=== PATIENT | male | born 1955 | race Caucasian/White ===

== ENCOUNTER 2017-02-20 09:49 | Emergency (ER) | payer MEDICARE, OTHER ==
[~2017-02-20] VITALS: Ht 182.9 cm; Wt 87.0 kg
[~2017-02-20 09:49] MED LIST: SULF-154 PO
[2017-02-20 09:51] VITALS: BP 114/74; PULSE 89; RESP 18; TEMP 98.1; O2SAT 99
[2017-02-20] MEDS ORDERED: LUMI0.01 EACH EYE (10:07)
[2017-02-20] MEDS ORDERED: CEPH-460 PO (10:11)
[2017-02-20] MEDS ORDERED: BACT800T5 PO (10:11)
--- NOTE | 2017-02-20 10:11 | PD ---
HPI Chief Complaint: Skin Problem Time Seen by Provider: 10:01 Travel History International Travel<30 days: No Contact w/Intl Traveler<30days: No Traveled to known affect area: No History of Present Illness HPI This is a 61-year-old male who presents to the emergency department with a involving his left heel for 1 week, constant, moderate severity associated with 2 wounds on the base of his heel. Yesterday he drained the wounds and had a fair amount of pus come out of it. He denies any fevers or chills. He does have pain when he walks. He does not have a history of diabetes. He does drink alcohol but has had 2 weeks of sobriety. He does have a primary care physician who he follows with. [facility] Past Medical History Medical History: Denies Significant Hx Autoimmune Disease: No Cancer: No Cardiovascular Problems: No Diminished Hearing: No Endocrine: No Genitourinary: No Immune Disorder: No Musculoskeletal: Yes (BROKEN RIBS, R SHOULDER SX, R KNEE SX, BROKEN TOES) Neurologic: No Psychiatric: No Reproductive: No Respiratory: No Tetanus Vaccination: < 5 Years Past Surgical History Surgical History: No Previous Surgery Social History Alcohol Use: No (quit 2 weeks) Tobacco Use: No Substance Use: No Allergies-Medications (Allergen,Severity, Reaction): Coded Allergies: *MDRO Multi-Drug Resistant Organism (Verified Adverse Reaction, Unknown, 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 HEAD: Atraumatic. Normocephalic. EYES: Pupils equal and round. No injection or drainage. ENT: Moist mucous membranes NECK: Trachea midline. CARDIOVASCULAR: Regular rate and rhythm. No murmur appreciated. 2+ DP pulse with normal capillary refill. RESPIRATORY: Clear to auscultation. Breath sounds equal bilaterally. GASTROINTESTINAL: Abdomen soft, non-tender, nondistended. MUSCULOSKELETAL: No obvious deformities. NEUROLOGICAL: Awake and alert. No obvious cranial nerve deficits. Moving all extremities. PSYCHIATRIC: Appropriate mood and affect; insight and judgment normal. Data Data Last Documented VS Vital Signs Date Time Temp Pulse Resp B/P (MAP) Pulse Ox O2 Delivery O2 Flow Rate FiO2 02/20/17 10:05 02/20/17 09:51 98.1 89 18 99 [facility] Medical Decision Making Medical Screen Exam Complete: Yes Emergency Medical Condition: Yes Differential Diagnosis Cellulitis, abscess, spider bite, necrotizing fasciitis, diabetic foot infection Narrative Course This is a 61-year-old male who presents to the emergency department with drainage and pain at the base of his left heel. He thinks he was bitten by a spider. On exam he has a draining abscess on the heel that appears very localized. He has no surrounding cellulitis of the foot. He has no fever. He is nontoxic appearing. I think is appropriate for outpatient conservative therapy. I asked him to continue to apply warm compresses on the foot 4 times a day and to complete Keflex and Bactrim. He will follow-up with his primary care doctor in 2 days for recheck. The area is also marked and I advised him to monitor the marked area and if it spreads outside of that he should return to the emergency room. Diagnosis Primary Impression: Abscess, heel Patient Instructions: General Instructions Additional Instructions: If you develop fever, increasing redness, warmth, or spreading of your infection , or severe pain return to the emergency department immediately as you may require antibiotics through your IV. Complete your course of antibiotics as prescribed. Apply a warm washcloth 4 times a day for 15 minutes. Have your wound rechecked in 2 days. Med/Other Pt SpecificInfo: Prescription(s) given Scripts Cephalexin (Keflex) 500 Mg Cap 500 MG PO Q12H for Infection for 10 Days, #20 CAP 0 Refills Prov: Sharon Mix MD 02/20/17 Sulfamethoxazole-Trimethoprim (Bactrim DS) 800-160 Mg Tab 1 TAB PO BID for Infection, #20 TAB 0 Refills Prov: Sharon Mix MD 02/20/17 Disposition: 01 DISCHARGE HOME Condition: Stable Sharon Mix MD Feb 20, 2017 10:11
== END 2017-02-20 10:29 | disposition home or self-care (01) ==
LOC: NEPK 09:49
DX: L02.612 Cutaneous abscess of left foot (principal)
CPT/HCPCS: 99284

== ENCOUNTER 2018-02-06 08:55 | Inpatient (IN) ==
--- NOTE | 2018-02-06 09:19 | ED ---
HPI General Chief complaint: Urogenital-Male Stated complaint: Urinary Complaint Time Seen by Provider: 02/06/18 09:03 History of Present Illness HPI narrative: 62-year-old male presents for evaluation of urinary retention. He reports that he has been unable to urinate at all in the past 3 days. He reports that initially he was having some urinary dribbling however that has since gone away. He endorses right flank pain as well, mild, aching, no obvious aggravating relieving factors. He spoke to a pharmacist who recommended that he take cranberry juice which she has been doing but he says that this has just caused him to have some diarrhea. He endorses some suprapubic pressure as well. Denies nausea, vomiting, fevers, chills. Denies any significant past medical history. Primary care clinic at [facility]. No other complaints. Related Data Home Medications Medication Instructions Recorded Confirmed No Known Home Medications 02/06/18 02/06/18 Allergies Allergy/AdvReac Type Severity Reaction Status Date / Time No Known Allergies Allergy Verified 02/06/18 09:01 Review of Systems ROS: all other systems reviewed are negative PMFSH Social History Social History Substance History: No History of Abuse Second Hand Smoke Exposure: No Smoking Status: Never smoker Tobacco Type: Cigarettes How Often Do You Have a Drink Containing Alcohol: 2 to 3 times a week Recent Travel in [facility] within the Last 8 Weeks: No Recent Out of Country Travel within the Last 8 Weeks: No Exam Narrative Exam Narrative: GENERAL: Well-developed well-nourished male no acute distress SKIN: Warm and dry. HEAD: Atraumatic. Normocephalic. EYES: Pupils equal and round. No scleral icterus. No injection or drainage. ENT: No nasal bleeding or discharge. Mucous membranes pink and moist. NECK: Trachea midline. No JVD. CARDIOVASCULAR: Regular rate and rhythm. No murmur appreciated. RESPIRATORY: No accessory muscle use. Clear to auscultation. Breath sounds equal bilaterally. GASTROINTESTINAL: Abdomen soft, tender to palpation in the suprapubic region which feels somewhat distended. Rectal examination reveals an enlarged prostate which is nontender. MUSCULOSKELETAL: No obvious deformities. No clubbing. No cyanosis. No edema. NEUROLOGICAL: Awake and alert. No obvious cranial nerve deficits. Motor grossly within normal limits. Normal speech. Course Initial Documented Vital Signs Temperature 97.7 F 02/06/18 09:14 Pulse Rate 108 H 02/06/18 09:14 Respiratory Rate 18 02/06/18 09:14 Blood Pressure 124/69 02/06/18 09:14 Pulse Oximetry 95 02/06/18 09:14 Last Documented Vital Signs Temperature 97.7 F 02/06/18 09:14 Pulse Rate 108 H 02/06/18 09:14 Respiratory Rate 18 02/06/18 09:14 Blood Pressure 124/69 02/06/18 09:14 Pulse Oximetry 95 02/06/18 09:14 Medical Decision Making KELECHI Attestation KELECHI supervised visit: Yes Attestation: I was present with the advanced practitioner during the management of this patient. I discussed the case with the advanced practitioner and agree with the findings and plan as documented in their note except as noted below. 62yM presenting with acute urinary retention x 3 days. No known history of prostate enlargement or disease, no family history of prostate cancer. Patient had >1500 cc urine output with Dow catheter placement and reports significant improvement in suprapubic abdominal pain/ distension. Given onset of symptoms > 12 hours ago, we ordered labs and CT scan to rule out prostate or bladder mass; he was found to have acute kidney injury with creatinine of 9.3 (no previous labs available, likely post-obstructive). Will d/w nephrology and [facility] Narrative Medical decision making narrative: A Dow catheter was placed in nearly 2 L of urine was expressed. Lab work was obtained revealing a GFR of 6, likely secondary to postobstructive uropathy, no baseline renal function is on file. Patient will be admitted for further treatment. Medical Screen Exam Complete: Yes Emergency Medical Condition: Yes Differential Diagnosis Differential Diagnosis: Urinary retention, obstructive uropathy, acute kidney injury, prostatitis, BPH Lab Data Result diagrams: 02/06/18 09:30 02/06/18 09:30 Lab Results 02/06/18 02/06/18 02/06/18 Range/Units 09:30 09:30 09:30 WBC 12.4 H (4.0-11.0) th/mm3 RBC 4.23 L (4.50-5.90) mil/mm3 Hgb 13.2 (13.0-17.0) gm/dL Hct 38.8 L (39.0-51.0) % MCV 91.5 (80.0-100.0) fL MCH 31.1 (27.0-34.0) pg MCHC 33.9 (32.0-36.0) % RDW 17.0 (11.6-17.2) % Plt Count 284 (150-450) th/mm3 MPV 8.8 (7.0-11.0) fL Neut % (Auto) 77.5 H (16.0-70.0) % Lymph % (Auto) 10.0 (9.0-44.0) % [place] % (Auto) 8.4 H (0.0-8.0) % Eos % (Auto) 3.1 (0.0-4.0) % Baso % (Auto) 1.0 (0.0-2.0) % Neut # (Auto) 9.6 H (1.8-7.7) th/mm3 Lymph # (Auto) 1.2 (1.0-4.8) th/mm3 [place] # (Auto) 1.0 H (0.0-0.9) th/mm3 Eos # (Auto) 0.4 (0.0-0.4) th/mm3 Baso # (Auto) 0.1 (0.0-0.2) th/mm3 WBC Differential . Differential Comment Auto diff final Sodium 134 L (136-145) meq/L Potassium 4.1 (3.5-5.1) meq/L Chloride 99 (98-107) meq/L Carbon Dioxide 20.6 L (21.0-32.0) meq/L Anion Gap 14 (5-15) meq/L BUN 54 H (7-18) mg/dL Creatinine 9.32 H (0.60-1.30) mg/dL Estimated GFR 6 L (>89) mL/min Random Glucose 100 (74-106) mg/dL Calcium 8.9 (8.5-10.1) mg/dL Magnesium 2.4 (1.5-2.5) mg/dL Total Bilirubin 0.8 (0.2-1.0) mg/dL AST 27 (15-37) U/L ALT 30 (12-78) U/L Alkaline Phosphatase 208 H (45-117) U/L Total Protein 7.4 (6.4-8.2) g/dL Albumin 3.2 L (3.4-5.0) g/dL Urine Color Yellow (Yellw/Straw) Urine Clarity Clear (Clear) Urine pH 5.0 (5.0-8.5) Ur Specific [place] 1.006 (1.002-1.035) Urine Protein Negative (Neg-Trace) mg/dL Urine Glucose (UA) Negative (Negative) mg/dL Urine Ketones Negative (Negative) mg/dL Urine Occult Blood Small H (Negative) Urine Nitrate Negative (Negative) Urine Bilirubin Negative (Negative) Urine Urobilinogen Less than 2 (Less than 2) mg/dL Ur Leukocyte Esterase Negative (Negative) Urine RBC 2 (0-3) /hpf Urine WBC 1 (0-5) /hpf Ur Squamous Epith Cells <1 (0-5) /hpf Hyaline Casts 1 (0-3) /lpf Micro UA Comment Culture not ind Ur Microscopic Review Not Reportable Urine Culture Comments Culture not ind Imaging Data Radiologist's impression: Abdomen/Pelvis CT 02/06/18 09:15 CONCLUSION: 1. No renal calculi or obstruction. 2. Mild inflammatory change along the inferior right kidney and adjacent mesentery as well as the proximal right ureter. The finding is nonspecific but could be infectious or inflammatory. No ureteral calculi is identified. 3. Dow catheter in bladder which is decompressed with small air-fluid levels. Discharge Plan Discharge Disposition Patient Disposition: 30 Still Patient Discharge Condition Condition: Stable Discharge Details Diagnosis: Acute retention of urine, Obstructed, uropathy, Acute renal failure Physicians Team ED Provider: Nkechi Abraham ED Midlevel Provider: Fernando Knowles Primary Care Provider: UNKNOWN, Rxs /Orders / Referrals /Forms Prescriptions: No Action No Known Home Medications RF: 0 Status ED Status: With Doctor
[2018-02-06 09:56] LABS: Baso # (Auto) 0.1 th/mm3 (0.0-0.2); Eos # (Auto) 0.4 th/mm3 (0.0-0.4); Eos % (Auto) 3.1 % (0.0-4.0); Hematocrit 38.8 % (39.0-51.0); Hemoglobin 13.2 gm/dL (13.0-17.0); Lymph # (Auto) 1.2 th/mm3 (1.0-4.8); Mean Corpuscular HGB Conc 33.9 % (32.0-36.0); Mean Corpuscular Hemoglobin 31.1 pg (27.0-34.0); Mean Corpuscular Volume 91.5 fL (80.0-100.0); Mean Platelet Volume 8.8 fL (7.0-11.0); Mono % (Auto) 8.4 % (0.0-8.0); Neut # (Auto) 9.6 th/mm3 (1.8-7.7); Neut % (Auto) 77.5 % (16.0-70.0); Platelet Count 284 th/mm3 (150-450); Red Blood Count 4.23 mil/mm3 (4.50-5.90); White Blood Count 12.4 th/mm3 (4.0-11.0)
[2018-02-06 10:11] LABS: Bilirubin,Urine Negative (Negative); Clarity,Urine Clear (Clear); Color,Urine Yellow (Yellw/Straw); Glucose,Urine (UA) Negative (Negative); Hyaline Casts,Urine 1 /lpf (0-3); Leukocyte Esterase,Urine Negative (Negative); Nitrite,Urine Negative (Negative); Specific Gravity,Urine 1.006 (1.002-1.035); Squamous Epithelial Cell,Urine <1 /hpf (0-5)
[2018-02-06 10:14] LABS: Albumin 3.2 g/dL (3.4-5.0); Anion Gap 14 meq/L (5-15); Aspartate Aminotransferase 27 U/L (15-37); Blood Urea Nitrogen 54 mg/dL (7-18); Calcium 8.9 mg/dL (8.5-10.1); Carbon Dioxide 20.6 meq/L (21.0-32.0); Chloride 99 meq/L (98-107); Glomerular Filtration Rate 6 mL/min (>89); Glucose,Random 100 mg/dL (74-106); Magnesium 2.4 mg/dL (1.5-2.5); Potassium 4.1 meq/L (3.5-5.1); Sodium 134 meq/L (136-145)
[2018-02-06 10:15] LABS: Alanine Aminotransferase 30 U/L (12-78)
[2018-02-06 10:17] LABS: Alkaline Phosphatase 208 U/L (45-117); Total Protein 7.4 g/dL (6.4-8.2)
--- NOTE | 2018-02-06 10:28 | CT ---
EXAM DATE: 02/06/2018 10:07 AM EST AGE/SEX: 62 years / Male INDICATIONS: Abdominal pain, unable to urinate three days. CLINICAL DATA: This is the patient's initial encounter. Patient reports that signs and symptoms have been present for 3 days and indicates a pain score of 5/10. MEDICAL/SURGICAL HISTORY: None. None. RADIATION DOSE: 8.13 CTDI (mGy) COMPARISON: [facility] [place], CT ABDOMEN & PELVIS W/O CONTRAST, 03/03/2015. . TECHNIQUE: Multiple contiguous axial images were obtained through the abdomen. Images were obtained using multiple row detector helical technique. Using automated exposure control and adjustment of the mA and/or kV according to patient size, radiation dose was kept as low as reasonably achievable to o btain optimal diagnostic quality images. DICOM format image data is available electronically for rev iew and comparison. FINDINGS: Lower Lungs: The visualized lower lungs are clear. There is a minimal amount of pericardial fluid pre sent. Liver: The liver has a homogeneous density without space-occupying lesion. There is no dilation of th e biliary tree. The gallbladder is unremarkable in appearance. Spleen: Homogeneous density without enlargement. Pancreas: Unremarkable without mass or calcification. Kidneys: Normal in size and shape. No evidence of mass or hydronephrosis. There are no renal calculi . Is mild inflammatory change along the inferior aspect of the right kidney and in the adjacent mesen kellie. This is new from the prior study. There are no ureteral calculi. Is apparent mild inflammatory change surrounding portions of the right ureter. There is no abnormal dilatation. Adrenal Glands: Unremarkable. Aorta: The aorta and proximal iliac vessels are grossly unremarkable without aneurysmal dilation. Bowel/Mesentery: The bowel loops are grossly unremarkable. The cecum and sigmoid colon have a normal configuration. Abdominal Wall: Intact. Retroperitoneum: No evidence of adenopathy in the retrocrural, para-aortic, or deep pelvic regions. Bladder: A Dow catheter is present in the bladder with small air fluid level. There are no bladder calculi. Reproductive Organs: No abnormal masses or calcifications seen. Inguinal: The inguinal region is unremarkable without evidence of adenopathy. Bony Structures: Unremarkable. CONCLUSION: 1. No renal calculi or obstruction. 2. Mild inflammatory change along the inferior right kidney and adjacent mesentery as well as the pr oximal right ureter. The finding is nonspecific but could be infectious or inflammatory. No ureteral calculi is identified. 3. Dow catheter in bladder which is decompressed with small air-fluid levels. Electronically signed by: Darian Jose MD 02/06/2018 10:27 AM EST
[2018-02-06] MEDS: Sod Chloride 0.9% Inj 1,000 ML IV.CONT SCH ×2 (11:14→21:46)
[2018-02-06] MEDS ORDERED: Acetaminophen 325 MG Tablet PO PRN (11:49)
--- NOTE | 2018-02-06 11:49 | P.HPIM ---
History of Present Illness Primary Care Physician: UNKNOWN Chief Complaint: urinary retention History of Present Illness: patient is a 62 y/o male with questionable history of prostate cancer presented to ER with urinary retention. he says that he hasn't been able to void for the past three days. he denies any abdominal pain, nausea, vomiting or fever. he says that he talked to a pharmacist and was advised to drink cranberry juice which he did with no improvement. he says that he was told a few months ago that he had prostate cancer and ' they gave me a medication for it'. Inpatient Certification: I certify that the inpatient services were ordered in accordance with Medicare regulations governing the order. This includes certification that hospital inpatient services are reasonable and necessary and in the case of services not specified as inpatient-only under 42 CFR 419.22(n), that they are appropriately provided as inpatient services in accordance to with the 2-midnight benchmark under 43 CFR 412.3(e) Estimated Total Length of Stay (Days): 2 Plans for Post Hospital Care: Home Review of Systems All other systems reviewed negative except as stated in HPI PMFSH - History History Provided By: Patient - Medical History Medical History: Medical History (Last Reviewed 02/06/18 @ 11:45 by John Tang MD) Patient denies medical problems - Surgical History Surgical History: Surgical History (Last Reviewed 02/06/18 @ 11:45 by John Tang MD) No history of previous surgery - Family History Family History: Family History (Last Updated 02/06/18 @ 11:45 by John Tang MD) Other No pertinent family history - Tobacco History Second Hand Smoke Exposure: No Tobacco Use In Past 30 Days: No Smoking Status: Never smoker Tobacco Type: Cigarettes - Alcohol History How Often Do You Have a Drink Containing Alcohol: 2 to 3 times a week - Substance Use History Substance History: No History of Abuse - Travel History Recent Travel in the [place] Within the Last 8 Weeks: No Recent Travel Out of the Country Within the Last 8 Weeks: No - Immunization History Tetanus Immunization: <5 Years Medications and Allergies Active Medications: Active Medications Sodium Chloride (Ns Inj) 1,000 mls @ 100 mls/hr IV.CONT .Q10H KATY Last Admin: 02/06/18 11:14 Dose: 100 mls/hr Allergies Allergy/AdvReac Type Severity Reaction Status Date / Time No Known Allergies Allergy Verified 02/06/18 09:01 Home Medications Medication Instructions Recorded Confirmed Type No Known Home Medications 02/06/18 02/06/18 History Exam Vital signs: Vital Signs 02/06/18 09:14 Temperature 97.7 F Pulse Rate 108 H Respiratory Rate 18 Blood Pressure 124/69 Pulse Oximetry 95 Intake & Output 02/05/18 02/06/18 02/06/18 18:59 06:59 18:59 Weight 74.843 kg - Constitutional no acute distress - Routine HEENT Exam Eye: Present: PERRL - Routine Neck Exam Present: supple - Routine Respiratory Exam Present: CTA bilaterally - Routine Cardiovascular Exam Present: RRR - Routine Abdominal Exam Present: soft - Routine Extremities Exam Comments: no pedal edema. - Routine Neurological Exam Present: alert, oriented X3 Results - Labs CBC & Chem 7: 02/06/18 09:30 02/06/18 09:30 Labs: Short CBC 02/06/18 Range/Units 09:30 WBC 12.4 H (4.0-11.0) th/mm3 Hgb 13.2 (13.0-17.0) gm/dL Hct 38.8 L (39.0-51.0) % Plt Count 284 (150-450) th/mm3 BMP 02/06/18 09:30 Sodium 134 L Potassium 4.1 Chloride 99 Carbon Dioxide 20.6 L BUN 54 H Creatinine 9.32 H Calcium 8.9 Liver Function 02/06/18 Range/Units 09:30 Total Bilirubin 0.8 (0.2-1.0) mg/dL AST 27 (15-37) U/L ALT 30 (12-78) U/L Alkaline Phosphatase 208 H (45-117) U/L Albumin 3.2 L (3.4-5.0) g/dL Urine 02/06/18 Range/Units 09:30 Urine Color Yellow (Yellw/Straw) Urine Clarity Clear (Clear) Urine pH 5.0 (5.0-8.5) Ur Specific [place] 1.006 (1.002-1.035) Urine Protein Negative (Neg-Trace) mg/dL Urine Glucose (UA) Negative (Negative) mg/dL - Imaging Impressions Abdomen/Pelvis CT 02/06/18 09:15 CONCLUSION: 1. No renal calculi or obstruction. 2. Mild inflammatory change along the inferior right kidney and adjacent mesentery as well as the proximal right ureter. The finding is nonspecific but could be infectious or inflammatory. No ureteral calculi is identified. 3. Nettles catheter in bladder which is decompressed with small air-fluid levels. Caprini VTE Risk Assessment Caprini VTE Risk Assessment: Moderate/High Risk (score >= 2) Caprini Risk Assessment Model: Point Value = 1 Point Value = 2 Point Value = 3 Point Value = 5 Age 41-60 Minor surgery BMI > 25 kg/m2 Swollen legs Varicose veins or History of unexplained or recurrent spontaneous Oral contraceptives or hormone replacement Sepsis (< 1 month) Serious lung disease, including pneumonia (< 1 month) Abnormal pulmonary function Acute myocardial infarction Congestive heart failure (< 1 month) History of inflammatory bowel disease Medical patient at bed rest Age 61-74 Arthroscopic surgery Major open surgery (> 45 min) Laparoscopic surgery (> 45 min) Malignancy Confined to bed (> 72 hours) Immobilizing plaster cast Central venous access Age >= 75 History of VTE Family history of VTE Factor V Leiden Prothrombin [id number] Lupus anticoagulant Anticardiolipin antibodies Elevated serum homocysteine Heparin-induced thrombocytopenia Other congenital or acquired thrombophilia Stroke (< 1 month) Elective arthroplasty Hip, pelvis, or leg fracture Acute spinal cord injury (< 1 month) Prophylaxis Regimen: Total Risk Factor Score Risk Level Prophylaxis Regimen 0-1 Low Early ambulation 2 Moderate Order ONE of the following: *Sequential Compression Device (SCD) *Heparin 5000 units SQ BID 3-4 Higher Order ONE of the following medications: *Heparin 5000 units SQ TID *Enoxaparin/Lovenox 40 mg SQ daily (WT < 150 kg, CrCl > 30 mL/min) *Enoxaparin/Lovenox 30 mg SQ daily (WT < 150 kg, CrCl > 10-29 mL/min) *Enoxaparin/Lovenox 30 mg SQ BID (WT < 150 kg, CrCl > 30 mL/min) AND/OR *Sequential Compression Device (SCD) 5 or more Highest Order ONE of the following medications: *Heparin 5000 units SQ TID (Preferred with Epidurals) *Enoxaparin/Lovenox 40 mg SQ daily (WT < 150 kg, CrCl > 30 mL/min) *Enoxaparin/Lovenox 30 mg SQ daily (WT < 150 kg, CrCl > 10-29 mL/min) *Enoxaparin/Lovenox 30 mg SQ BID (WT < 150 kg, CrCl > 30 mL/min) AND *Sequential Compression Device (SCD) Assessment and Plan - Plan A/P - Acute kidney injury due to urinary retention with questionable history of prostate cancer nettles cath was inserted and two liters of urine was immediately removed. continue with IV fluid/ I/O monitoring. will consult nephrology and Urology. kidney US will be obtained. -DVT prophylaxis with SCD's Discussed Condition With: ER physician and the patient. Discharge Planning: home when clinically stable.
--- NOTE | 2018-02-06 12:45 | P.CONNP ---
History of Present Illness Service: Nephrology Consult date: 02/06/18 Requesting Physician: John Tang Reason for Consult: Acute renal failure Primary Care Provider: UNKNOWN Chief Complaint: urinary retention History of Present Illness: Patient is a 62-year-old white male with history of benign prostate enlargement , stated he was told that his prostate is enlarged he said he has difficulty in voiding and did not pass urine and came in with abdominal discomfort, a Dow catheter was inserted and he passed 2 L of urine and another 2 L has come out since Dow insertion his creatinine was above 9 he denied any history of kidney failure in the past for kidney stones, states his PSA was 6 and I declined to 4 with the help of medications. Review of Systems Constitutional: Reports lack of energy Eyes: Denies blind spots, Denies blurry vision, Denies bulging eyes, Denies change in vision, Denies double vision, Denies discharge, Denies dry eyes, Denies floaters, Denies irritation, Denies itchy eyes, Denies loss of vision, Denies pain, Denies requires corrective lenses, Denies sensitivity to light, Denies other Ears, Nose, Mouth, and Throat: Denies abnormal hearing, Denies bleeding gums, Denies bad breath, Denies change in voice, Denies dental pain, Denies difficulty swallowing, Denies dizziness, Denies dry mouth, Denies ear discharge , Denies ear pain, Denies facial pain, Denies headache(s), Denies hearing loss, Denies hoarseness, Denies lip swelling, Denies nosebleed, Denies mouth lesions, Denies mouth pain, Denies nasal congestion, Denies nasal discharge, Denies nasal obstruction, Denies nasal trauma, Denies neck lump, Denies neck pain, Denies nose pain, Denies pain with swallowing, Denies poor balance, Denies post nasal drip, Denies ringing in the ears, Denies sinus pain, Denies sinus pressure , Denies sore throat, Denies throat swelling, Denies tongue swelling, Denies other Cardiovascular: Denies chest pain, Denies chest pain at rest, Denies chest pain with activity, Denies excessive sweating, Denies fainting, Denies fast heart rate, Denies foot swelling, Denies generalized swelling, Denies irregular heart rhythm, Denies leg pain with activity, Denies leg sores, Denies leg swelling, Denies lightheadedness, Denies radiating jaw, neck or arm pain, Denies rapid, pounding, or irregular heartbeat, Denies shortness of breath, Denies shortness of breath with activity, Denies shortness of breath when lying down, Denies shortness of breath causing sudden awakening, Denies slow heart rate, Denies other Respiratory: Denies change in phlegm color, Denies chest congestion, Denies cough, Denies coughing up blood, Denies excessive phlegm production, Denies pain on inspiration, Denies pain with cough, Denies shortness of breath, Denies shortness of breath with activity, Denies snoring, Denies stridor, Denies wheezing, Denies other Gastrointestinal: Reports abdominal pain Genitourinary: Reports decreased urination, Reports urinary hesitancy Musculoskeletal: Reports muscle weakness Neurologic: Reports weakness Endocrine: Denies cold intolerance, Denies excessive sweating, Denies flushing, Denies heat intolerance, Denies increased hunger, Denies increased thirst, Denies increased urination, Denies rapid, pounding, or irregular heartbeat, Denies other Hematologic/Lymphatic: Denies easy bleeding, Denies easy bruising, Denies enlarged lymph nodes, Denies other Allergic/Immunologic: Denies GI upset with certain foods, Denies hives, Denies itchy eyes, Denies lip swelling, Denies seasonal runny nose, Denies throat swelling, Denies tongue swelling, Denies wheezing, Denies other PMFSH - History History Provided By: Patient - Medical History Medical History: Medical History (Last Updated 02/06/18 @ 12:43 by Geo Adorno MD) BPH (benign prostatic hyperplasia) Patient denies medical problems - Surgical History Surgical History: Surgical History (Last Reviewed 02/06/18 @ 12:43 by Geo Adorno MD) No history of previous surgery - Family History Family History: Family History (Last Reviewed 02/06/18 @ 12:43 by Geo Adorno MD) Other No pertinent family history - Social History I have reviewed the patient's Social History: Yes - Tobacco History Second Hand Smoke Exposure: No Tobacco Use In Past 30 Days: No Smoking Status: Former smoker (Smoke more than 20 years ago less than a pack per day) Tobacco Type: Cigarettes - Alcohol History How Often Do You Have a Drink Containing Alcohol: 2 to 3 times a week - Substance Use History Substance History: No History of Abuse - Travel History Recent Travel in the [place] Within the Last 8 Weeks: No Recent Travel Out of the Country Within the Last 8 Weeks: No - Immunization History Tetanus Immunization: <5 Years Medications and Allergies Active Medications: Active Medications Acetaminophen (Tylenol) 650 mg PO Q4H PRN PRN Reason: fever/pain Sodium Chloride (Ns Inj) 1,000 mls @ 100 mls/hr IV.CONT .Q10H KATY Last Admin: 02/06/18 11:14 Dose: 100 mls/hr Ondansetron HCl (Zofran Inj) 4 mg IV.PUSH Q8H PRN PRN Reason: nausea Allergies Allergy/AdvReac Type Severity Reaction Status Date / Time No Known Allergies Allergy Verified 02/06/18 09:01 Home Medications Medication Instructions Recorded Confirmed Type No Known Home Medications 02/06/18 02/06/18 History Exam Vital signs: Vital Signs 02/06/18 09:14 Temperature 97.7 F Pulse Rate 108 H Respiratory Rate 18 Blood Pressure 124/69 Pulse Oximetry 95 Intake & Output 02/05/18 02/06/18 02/06/18 18:59 06:59 18:59 Weight 74.843 kg Narrative: GENERAL: Well-nourished, well-developed patient. SKIN: Warm and dry. HEAD: Normocephalic. EYES: No scleral icterus. No injection or drainage. NECK: Supple, trachea midline. No JVD or lymphadenopathy. CARDIOVASCULAR: Regular rate and rhythm without murmurs, gallops, or rubs. RESPIRATORY: Breath sounds equal bilaterally. No accessory muscle use. GASTROINTESTINAL: Abdomen soft, non-tender, nondistended. EXTREMITIES: No edema NEUROLOGICAL: Awake, alert, and oriented x 3. Non-focal. Results - Lab Results 02/06/18 09:30 02/06/18 09:30 Most recent lab results Calcium 8.9 mg/dL (8.5-10.1) 02/06/18 09:30 Magnesium 2.4 mg/dL (1.5-2.5) 02/06/18 09:30 Assessment and Plan - Assessment (1) Acute renal failure Code(s): N17.9 - Acute kidney failure, unspecified Status: Acute (2) Acute retention of urine Code(s): R33.8 - Other retention of urine Status: Acute (3) Obstructed, uropathy Code(s): N13.9 - Obstructive and reflux uropathy, unspecified Status: Acute - Plan Patient has postoperative diuresis, continue monitor BMP, electrolytes, give him well-hydrated At Flomax daily Keep Dow catheter in place He will need urological follow-up Acute renal failure is due to obstructive uropathy which is reversible
--- NOTE | 2018-02-06 12:57 | P.CONURO ---
History of Present Illness Service: Consult date: 02/06/18 Requesting Physician: John Tang Reason for Consult: Urinary retention Primary Care Provider: UNKNOWN Chief Complaint: urinary retention History of Present Illness: 62-year-old gentleman who was recently diagnosed with prostate cancer and being managed over the past several months at [facility] who presented to the emergency room with complaints of inability to urinate for the past several days. Patient had an indwelling Dow catheter placed with evacuation of almost 2 L of urine. Laboratory studies included market elevation of the serum creatinine greater than 9. A CT scan of the abdomen and pelvis was performed that failed to demonstrate any significant abnormalities other than some mild inflammatory changes to the inferior aspect of the right kidney. Patient has already been seen by nephrology and a urology consult placed for further recommendations regarding the urinary retention. At the time of consultation, the patient was resting comfortably in bed in no acute distress. He reported that the Dow had been draining well and he felt much better. Patient reports that he is being treated medically for his prostate cancer over at [facility] and thus far the physicians have been happy with his progress. Review of Systems All other systems reviewed negative except as stated in HPI PMFSH - History History Provided By: Patient - Medical History Medical History: Medical History (Last Updated 02/06/18 @ 12:43 by Geo Adorno MD) BPH (benign prostatic hyperplasia) Patient denies medical problems - Surgical History Surgical History: Surgical History (Last Reviewed 02/06/18 @ 12:43 by Geo Adorno MD) No history of previous surgery - Family History Family History: Family History (Last Reviewed 02/06/18 @ 12:43 by Geo Adorno MD) Other No pertinent family history - Tobacco History Second Hand Smoke Exposure: No Tobacco Use In Past 30 Days: No Smoking Status: Former smoker (Smoke more than 20 years ago less than a pack per day) Tobacco Type: Cigarettes - Alcohol History How Often Do You Have a Drink Containing Alcohol: 2 to 3 times a week - Substance Use History Substance History: No History of Abuse - Travel History Recent Travel in the [facility] Within the Last 8 Weeks: No Recent Travel Out of the Country Within the Last 8 Weeks: No - Immunization History Tetanus Immunization: <5 Years Medications and Allergies Active Medications: Active Medications Acetaminophen (Tylenol) 650 mg PO Q4H PRN PRN Reason: fever/pain Sodium Chloride (Ns Inj) 1,000 mls @ 100 mls/hr IV.CONT .Q10H KATY Last Admin: 02/06/18 11:14 Dose: 100 mls/hr Ondansetron HCl (Zofran Inj) 4 mg IV.PUSH Q8H PRN PRN Reason: nausea Tamsulosin HCl (Flomax) 0.4 mg PO DAILY KATY Allergies Allergy/AdvReac Type Severity Reaction Status Date / Time No Known Allergies Allergy Verified 02/06/18 09:01 Home Medications Medication Instructions Recorded Confirmed Type No Known Home Medications 02/06/18 02/06/18 History Physical Exam Vital Signs - 24 hr 02/06/18 09:14 Temperature 97.7 F Pulse Rate 108 H Respiratory Rate 18 Blood Pressure 124/69 Pulse Oximetry 95 Physical Exam: GENERAL: This is a well-nourished, well-developed patient, in no apparent distress. SKIN: No rashes, ecchymoses or lesions. Cool and dry. HEAD: Atraumatic. Normocephalic. No temporal or scalp tenderness. EYES: Pupils equal round and reactive. Extraocular motions intact. No scleral icterus. No injection or drainage. ENT: Nose without bleeding, purulent drainage or septal hematoma. Throat without erythema, tonsillar hypertrophy or exudate. Uvula midline. Airway patent. NECK: Trachea midline. No JVD or lymphadenopathy. Supple, nontender, no meningeal signs. CARDIOVASCULAR: Regular rate and rhythm without murmurs, gallops, or rubs. RESPIRATORY: Clear to auscultation. Breath sounds equal bilaterally. No wheezes , rales, or rhonchi. GASTROINTESTINAL: Abdomen soft, non-tender, nondistended. No hepato-splenomegaly , or palpable masses. No guarding. GENITOURINARY: No CVA tenderness, bladder not distended, Dow in place draining clear yellow urine. MUSCULOSKELETAL: Extremities without clubbing, cyanosis, or edema. No joint tenderness, effusion, or edema noted. No calf tenderness. Negative Homans sign bilaterally. NEUROLOGICAL: Awake and alert. Cranial nerves II through XII intact. Motor and sensory grossly within normal limits. Five out of 5 muscle strength in all muscle groups. Normal speech. Laboratory Results - last 24 hr 02/06/18 02/06/18 02/06/18 09:30 09:30 09:30 WBC 12.4 H RBC 4.23 L Hgb 13.2 Hct 38.8 L MCV 91.5 MCH 31.1 MCHC 33.9 RDW 17.0 Plt Count 284 MPV 8.8 Neut % (Auto) 77.5 H Lymph % (Auto) 10.0 [place] % (Auto) 8.4 H Eos % (Auto) 3.1 Baso % (Auto) 1.0 Neut # (Auto) 9.6 H Lymph # (Auto) 1.2 [place] # (Auto) 1.0 H Eos # (Auto) 0.4 Baso # (Auto) 0.1 WBC Differential . Differential Comment Auto diff final Sodium 134 L Potassium 4.1 Chloride 99 Carbon Dioxide 20.6 L Anion Gap 14 BUN 54 H Creatinine 9.32 H Estimated GFR 6 L Random Glucose 100 Calcium 8.9 Magnesium 2.4 Total Bilirubin 0.8 AST 27 ALT 30 Alkaline Phosphatase 208 H Total Protein 7.4 Albumin 3.2 L Urine Color Yellow Urine Clarity Clear Urine pH 5.0 Ur Specific [place] 1.006 Urine Protein Negative Urine Glucose (UA) Negative Urine Ketones Negative Urine Occult Blood Small H Urine Nitrate Negative Urine Bilirubin Negative Urine Urobilinogen Less than 2 Ur Leukocyte Esterase Negative Urine RBC 2 Urine WBC 1 Ur Squamous Epith Cells <1 Hyaline Casts 1 Micro UA Comment Culture not ind Ur Microscopic Review Not Reportable Urine Culture Comments Culture not ind Result Diagrams: 02/06/18 09:30 02/06/18 09:30 Imaging: ITS Impressions Abdomen/Pelvis CT 02/06/18 09:15 CONCLUSION: 1. No renal calculi or obstruction. 2. Mild inflammatory change along the inferior right kidney and adjacent mesentery as well as the proximal right ureter. The finding is nonspecific but could be infectious or inflammatory. No ureteral calculi is identified. 3. Dow catheter in bladder which is decompressed with small air-fluid levels. Assessment and Plan - Assessment (1) Acute retention of urine Code(s): R33.8 - Other retention of urine Status: Acute (2) Prostate CA Code(s): C61 - Malignant neoplasm of prostate Status: Acute - Plan Urologic impression: 1. Recent diagnosis of prostate cancer 2. Urinary retention likely related to bladder outlet obstruction from the prostate cancer Recommendations: 1. Maintain Dow catheter to gravity drainage 2. Patient may be discharged home with Dow once his renal parameters improve 3. Patient advised to follow-up with the physicians at [facility] for ongoing management of his prostate cancer 4. We will be available as needed during present hospitalization.
--- NOTE | 2018-02-06 14:34 | US ---
EXAM DATE: 02/06/2018 2:11 PM EST AGE/SEX: 62 years / Male INDICATIONS: Increased lab values. CLINICAL DATA: This is the patient's initial encounter. Patient reports that signs and symptoms have been present for 1 day and indicates a pain score of 0/10. MEDICAL/SURGICAL HISTORY: . Benign prostatic hyperplasia. None. COMPARISON: . MEASUREMENTS: Right Kidney:__10.6 x 4.3 x 4.7 cm Left Kidney:__10.3 x 5.4 x 4.9 cm FINDINGS: Right Kidney: No solid mass or hydronephrosis. Simple cyst is present in midpole measures 1.1 cm in s ize. Left Kidney: No mass or hydronephrosis. Bladder: Dow catheter is present. Bladder decompressed. Other: The prostate gland is enlarged measures 4.4 cm in size. CONCLUSION: 1. Prominent prostate as simple cyst in the right kidney. Electronically signed by: Naomi Kemp MD 02/06/2018 2:33 PM EST
[2018-02-07] MEDS: Sod Chloride 0.9% Inj 1,000 ML IV.CONT SCH ×2 (06:28→16:14)
[2018-02-07 10:09] LABS: Baso # (Auto) 0.1 th/mm3 (0.0-0.2); Baso % (Auto) 1.1 % (0.0-2.0); Eos # (Auto) 0.3 th/mm3 (0.0-0.4); Eos % (Auto) 3.8 % (0.0-4.0); Hematocrit 32.5 % (39.0-51.0); Lymph # (Auto) 1.1 th/mm3 (1.0-4.8); Lymph % (Auto) 14.9 % (9.0-44.0); Mean Corpuscular HGB Conc 33.8 % (32.0-36.0); Mean Corpuscular Hemoglobin 31.4 pg (27.0-34.0); Mean Corpuscular Volume 92.9 fL (80.0-100.0); Mean Platelet Volume 8.5 fL (7.0-11.0); Mono # (Auto) 0.7 th/mm3 (0.0-0.9); Mono % (Auto) 8.6 % (0.0-8.0); Neut # (Auto) 5.4 th/mm3 (1.8-7.7); Neut % (Auto) 71.6 % (16.0-70.0); Platelet Count 248 th/mm3 (150-450); White Blood Count 7.6 th/mm3 (4.0-11.0)
[2018-02-07 10:17] LABS: Carbon Dioxide 27.3 meq/L (21.0-32.0); Potassium 4.3 meq/L (3.5-5.1)
--- NOTE | 2018-02-07 12:21 | P.PNIM ---
Subjective Interval history: Patient is feeling much relief after placement of urinary catheter overnight in the ER. He presented for urinary obstruction secondary to prostate cancer. Physical Exam Vital signs: Vital Signs 02/06/18 16:00 02/06/18 20:00 02/07/18 00:00 Temperature 98.2 F 98.3 F 97.9 F Pulse Rate 105 H 112 H 97 H Respiratory Rate 18 18 20 Blood Pressure 146/77 H 128/76 121/67 Pulse Oximetry 97 95 94 L 02/07/18 04:00 02/07/18 08:00 Temperature 98.3 F 98.2 F Pulse Rate 95 H 76 Respiratory Rate 20 18 Blood Pressure 128/72 126/62 Pulse Oximetry 94 L 95 Intake & Output 02/06/18 02/07/18 02/07/18 18:59 06:59 18:59 Intake Total 140 / 140 2006 1000 / 1000 Output Total 1000 / 1000 1000 / 1000 Balance -860 / -860 1007 / 1007 1000 / 1000 Weight 76.2 kg 76.2 kg Intake: IV 1867 / 1867 1000 / 1000 NS Inj 1,000 ML @ 100 mls/hr IV 1867 / 1867 1000 / 1000 .CONT .Q10H KATY Rx#:[id number] Oral 140 / 140 140 / 140 Output: Urine 1000 / 1000 1000 / 1000 Other: Date of Last Bowel Movement 02/06/18 02/06/18 # Bowel Movements 0 0 Narrative: GENERAL: Well-nourished, well-developed patient. SKIN: Warm and dry. No obvious rashes HEAD: Normocephalic. EYES: No scleral icterus. No injection or drainage. NECK: Supple, trachea midline. No JVD or lymphadenopathy. CARDIOVASCULAR: Regular rate and rhythm without murmurs, gallops, or rubs. RESPIRATORY: Breath sounds equal bilaterally. No accessory muscle use. GASTROINTESTINAL: Abdomen soft, non-tender, nondistended. EXTREMITIES: No edema NEUROLOGICAL: Awake, alert, and oriented x 3. Non-focal. - Urinary Catheter Management Indwelling Urethral Catheter Cath placed during this visit: yes Reason for continuing: Acute urinary retention Insertion date: 02/06/18 Insertion time: 09:30 Results - Labs CBC & Chem 7: 02/07/18 08:34 02/07/18 08:34 Laboratory Results - last 24 hr 02/07/18 02/07/18 08:34 08:34 WBC 7.6 RBC 3.50 L Hgb 11.0 L D Hct 32.5 L MCV 92.9 MCH 31.4 MCHC 33.8 RDW 17.0 Plt Count 248 MPV 8.5 Neut % (Auto) 71.6 H Lymph % (Auto) 14.9 [place] % (Auto) 8.6 H Eos % (Auto) 3.8 Baso % (Auto) 1.1 Neut # (Auto) 5.4 Lymph # (Auto) 1.1 [place] # (Auto) 0.7 Eos # (Auto) 0.3 Baso # (Auto) 0.1 WBC Differential . Differential Comment Auto diff final Sodium 142 Potassium 4.3 Chloride 108 H D Carbon Dioxide 27.3 Anion Gap 7 BUN 21 H Creatinine 1.40 H Estimated GFR 51 L Random Glucose 83 Calcium 8.0 L D - Imaging Impressions Abdomen/Bladder Ultrasound 02/06/18 00:00 CONCLUSION: 1. Prominent prostate as simple cyst in the right kidney. Assessment and Plan - Plan Urinary outflow obstruction Prostatic enlargement, prostate cancer versus benign Patient reports this is not happened before, he says his PSA was going down from 6.4 to 4.2 on recent lab work Dow catheter relieved his obstruction No evidence of urinary tract infection on ER urine sample Urology consult pending Acute renal failure Secondary to outflow obstruction Creatinine was 9.3 on admission now down to 1.4 after placement of Dow overnight Continue to follow trend, continue IV fluid hydration Kidney ultrasound pending Appreciate nephrology consult DVT prophylaxis SCDs
[2018-02-08] MEDS: Sod Chloride 0.9% Inj 1,000 ML IV.CONT SCH (01:45)
[2018-02-08 05:06] LABS: Carbon Dioxide 25.3 meq/L (21.0-32.0); Potassium 4.1 meq/L (3.5-5.1)
[2018-02-08 06:20] VITALS: O2SAT 94
--- NOTE | 2018-02-08 08:23 | P.DS ---
Date of admission: 02/06/18 10:33 Primary care physician: UNKNOWN Anticipated date of discharge: 02/08/18 Brief History from admission: patient is a 62 y/o male with questionable history of prostate cancer presented to ER with urinary retention. he says that he hasn't been able to void for the past three days. he denies any abdominal pain, nausea, vomiting or fever. he says that he talked to a pharmacist and was advised to drink cranberry juice which he did with no improvement. he says that he was told a few months ago that he had prostate cancer and ' they gave me a medication for it'. Patient update on day of discharge: Follow up for acute renal failure secondary to bladder outlet obstruction. Patient reports feeling much better again today and wants to go home. Denies any abdominal pain. Having good output in Dow bag. He plans to follow-up with [facility] for his prostate cancer. Instructed to see urology Dr. Loving if he is not seeing a urologist with [facility], patient verbalized understanding. DS: Diagnosis - Discharge Diagnosis (1) Obstructed, uropathy Status: Acute (2) Acute renal failure Status: Acute (3) Prostate CA Status: Acute DS: Medications - Discharge Medications Prescriptions: tamsulosin 0.4 mg PO DAILY #30 cap DS: Summary Hospital Course: The patient was recently diagnosed with prostate cancer as outpatient with [facility]. He presented with acute urinary retention secondary to bladder outlet obstruction from the prostate cancer. Dow catheter was placed in ER and removed 2 L or urine. Creatinine 9.32 upon arrival, improved to 1.4 after placement of Dow. CT abd/pelvis showed no renal calculi or obstruction; Mild inflammatory change along the inferior right kidney and adjacent mesentery as well as the proximal right ureter; No ureteral calculi is identified; Dow catheter in bladder which is decompressed with small air-fluid levels. He was evaluated by urology recommended the patient keep Dow catheter and can be discharged home when renal parameters improved. Creatinine continued to improve to 1.02. Patient's symptoms resolved and he wants to go home. RN to change Dow to leg bag. He was instructed to follow-up with urology as outpatient, patient verbalized understanding. - Time Spent with Patient Total time spent providing and/or coordinating discharge services: Less than 30 minutes - Quality: VTE Deep Vein Thrombosis/Pulmonary Embolism Present on Admission: No Exam Vital signs: Vital Signs 02/07/18 12:00 02/07/18 16:00 02/07/18 19:51 Temperature 98.1 F 98.4 F 98.4 F Pulse Rate 84 97 H 96 H Respiratory Rate 18 17 20 Blood Pressure 147/75 H 133/77 119/77 Pulse Oximetry 96 95 98 02/08/18 00:00 02/08/18 04:00 Temperature 98.7 F 97.9 F Pulse Rate 91 H 79 Respiratory Rate 20 20 Blood Pressure 122/68 144/64 H Pulse Oximetry 95 94 L Intake & Output 02/07/18 02/08/18 02/08/18 18:59 06:59 18:59 Intake Total 1720 / 1720 1000 / 1000 Output Total 1750 / 1750 1900 / 1900 Balance -30 / -30 -900 / -900 Weight 81.8 kg Intake: IV 1000 / 1000 1000 / 1000 NS Inj 1,000 ML @ 100 mls/hr IV 1000 / 1000 1000 / 1000 .CONT .Q10H KATY Rx#:[id number] Oral 720 / 720 Output: Urine 1750 / 1750 Urine Amount (Catheter) 1900 / 1900 Indwelling Urethral Catheter 1900 / 1900 Other: # Bowel Movements 0 Narrative: GENERAL: Well-nourished, well-developed pleasant male patient in [facility]. SKIN: Warm and dry. No rash. HEENT: Normocephalic. Atraumatic. Pupils equal and round. Mucous membranes pink and moist. CARDIOVASCULAR: Regular rate and rhythm. No murmur appreciated. RESPIRATORY: No accessory muscle use. Clear to auscultation. Breath sounds equal bilaterally. GASTROINTESTINAL: Abdomen soft, non-tender, nondistended. Normoactive bowel sounds x4. GENITOURINARY: Dow in place with pale yellow urine. MUSCULOSKELETAL: No obvious deformities. Extremities without clubbing, cyanosis , or edema. NEUROLOGICAL: Awake and alert. No obvious cranial nerve deficits. Motor grossly within normal limits. Moving all extremities spontaneously. Normal speech. PSYCHIATRIC: Appropriate mood and affect; insight and judgment normal. Results Procedures completed during hospitalization: None. Labs on day of discharge: Labs from last 24 hours 02/08/18 02/07/18 02/07/18 04:33 08:34 08:34 WBC 7.6 RBC 3.50 L Hgb 11.0 L D Hct 32.5 L MCV 92.9 MCH 31.4 MCHC 33.8 RDW 17.0 Plt Count 248 MPV 8.5 Neut % (Auto) 71.6 H Lymph % (Auto) 14.9 [place] % (Auto) 8.6 H Eos % (Auto) 3.8 Baso % (Auto) 1.1 Neut # (Auto) 5.4 Lymph # (Auto) 1.1 [place] # (Auto) 0.7 Eos # (Auto) 0.3 Baso # (Auto) 0.1 WBC Differential . Differential Comment Auto diff final Sodium 140 142 Potassium 4.1 4.3 Chloride 108 H 108 H D Carbon Dioxide 25.3 27.3 Anion Gap 7 7 BUN 14 21 H Creatinine 1.02 1.40 H Estimated GFR 74 L 51 L Random Glucose 96 83 Calcium 8.0 L 8.0 L D - Impressions ITS Impressions Abdomen/Bladder Ultrasound 02/06/18 00:00 CONCLUSION: 1. Prominent prostate as simple cyst in the right kidney. Abdomen/Pelvis CT 02/06/18 09:15 CONCLUSION: 1. No renal calculi or obstruction. 2. Mild inflammatory change along the inferior right kidney and adjacent mesentery as well as the proximal right ureter. The finding is nonspecific but could be infectious or inflammatory. No ureteral calculi is identified. 3. Dow catheter in bladder which is decompressed with small air-fluid levels. Discharge Plan - Discharge Disposition Patient Disposition: 01 Discharge Home - Discharge Condition Condition: Stable - Discharge Order Discharge Orders: Discharge Order (Routine); Ordered 02/08/18 Ordered By: Aileen Keen - Discharge Details Anticipated Discharge Date: 02/08/18 Discharge Comment: Keep Dow in place at discharge. May transition to leg bag. - Physicians Team Primary Care Provider: UNKNOWN, Attending Provider: Redd Ruggiero Other Providers: Geo Adorno MD ; Munir Amaral ; Chris Loving MD
[2018-02-08 08:55] VITALS: BP 129/74; PULSE 77; RESP 18; TEMP 97.8
== END 2018-02-08 10:45 | disposition home or self-care (01) ==
LOC: NEPD 08:55 → NEDA 10:33 → N04 14:40
PROVIDERS: ADMIT Hospitalist; ATTEND Hospitalist